=== PATIENT | male | born 1955 | race Hispanic/Latino ===

== ENCOUNTER 2018-01-05 19:54 | Emergency (ER) | payer SELFPAY ==
[2018-01-05 21:21] LABS: Basophils # (Auto) 0.1 K/mm3 (0.0-0.1); Basophils % (Auto) 1.2 % (0.0-1.8); Eosinophils # (Auto) 0.3 K/mm3 (0.0-0.4); Eosinophils % (Auto) 4.6 % (0.0-4.3); Hemoglobin 13.1 gm/dl (11.8-15.2); Lymphocytes # (Auto) 1.4 K/mm3 (1.2-5.4); Lymphocytes % (Auto) 24.7 % (13.4-35.0); Mean Corpuscular HGB Conc 35 % (32-34); Mean Corpuscular Hemoglobin 35 pg (28-32); Mean Corpuscular Volume 100 fl (84-94); Monocytes # (Auto) 0.6 K/mm3 (0.0-0.8); Monocytes % (Auto) 10.7 % (0.0-7.3); Platelet Count 228 K/mm3 (140-440)
--- NOTE | 2018-01-05 21:32 | Cat Scan Report ---
FINAL REPORT PROCEDURE: CT HEAD/BRAIN WO CON TECHNIQUE: Computerized tomography of the head was performed without contrast material. HISTORY: fall cut on top of head COMPARISON: No prior studies are available for comparison. FINDINGS: Skull and scalp: Normal. Paranasal sinuses: Normal. Ventricles and subarachnoid spaces: Are prominent consistent with cerebral atrophy appropriate for patient's age.. Cerebrum: There is mild degree bilateral periventricular nonspecific white matter hypodensity most likely representing chronic microangiopathy. An acute intra-axial or extra-axial hemorrhage is not identified. There is no mass effect.. Cerebellum and brainstem: No evidence of hemorrhage, acute infarction or mass. Vasculature: Normal. Comments: None. IMPRESSION: No acute intracranial abnormality
[2018-01-05 21:35] LABS: BUN/Creatinine Ratio 13; Blood Urea Nitrogen 16 mg/dL (9-20); Calcium 8.6 mg/dL (8.4-10.2); Hemolysis Index 7
[2018-01-05] MEDS ORDERED: NACL 0.9% 1000 ML 1,000 ML IV ONE (21:38)
--- NOTE | 2018-01-05 21:41 | Emergency Department Report ---
ED Alcohol HPI - General Chief Complaint: Fall Stated Complaint: LAC TO FOREHEAD; +ETOH Time Seen by Provider: 01/05/18 21:22 Source: patient Mode of arrival: Ambulatory Limitations: No Limitations - History of Present Illness Initial Comments: Patient is 62 years old male, unknown to me, patient brought by police department after he was found on the street intoxicated with alcohol. Patient fell and hit his head. Patient is unable to give history. He is very aggressive in the ER. Unable to obtain more history from him at this moment. MD Complaint: alcohol intoxication Last Drink: unknown - Related Data Allergies Allergy/AdvReac Type Severity Reaction Status Date / Time No Known Allergies Allergy Unverified 01/05/18 20:52 ED Review of Systems ROS: Stated complaint: LAC TO FOREHEAD; +ETOH Other details as noted in HPI Comment: Unobtainable due to pts medical conditions ED Past Medical Hx - Past Medical History Previous Medical History?: Yes Hx Hypertension: Yes Hx GERD: Yes Additional medical history: etoh abuse, - Surgical History Past Surgical History?: Yes Additional Surgical History: adenoids - Social History Smoking Status: Current Every Day Smoker Substance Use Type: Marijuana ED Physical Exam - General Limitations: No Limitations General appearance: alert, appears intoxicated - Eye Eye exam: Present: normal appearance - ENT ENT exam: Present: normal exam, normal orophraynx, mucous membranes moist - Neck Neck exam: Present: normal inspection, full ROM. Absent: tenderness, meningismus, lymphadenopathy, thyromegaly - Respiratory Respiratory exam: Present: normal lung sounds bilaterally. Absent: respiratory distress, wheezes, rales, rhonchi, stridor, chest wall tenderness, accessory muscle use, decreased breath sounds, prolonged expiratory - Cardiovascular Cardiovascular Exam: Present: regular rate, normal rhythm, normal heart sounds - GI/Abdominal GI/Abdominal exam: Present: soft, normal bowel sounds. Absent: distended, tenderness, guarding, rebound, rigid, diminished bowel sounds, organomegaly, mass, bruit, pulsatile mass, hernia - Extremities Exam Extremities exam: Present: normal inspection, full ROM, normal capillary refill - Back Exam Back exam: Present: normal inspection, full ROM. Absent: tenderness, CVA tenderness (R), CVA tenderness (L), muscle spasm, paraspinal tenderness, vertebral tenderness, rash noted - Neurological Exam Neurological exam: Present: alert, altered - Skin Skin exam: Present: warm, dry, normal color ED Course Vital Signs 01/05/18 01/05/18 01/06/18 20:47 23:38 04:50 Temperature 98.1 F Pulse Rate 77 74 Respiratory 17 19 18 Rate Blood Pressure 108/70 Blood Pressure 112/68 [Right] O2 Sat by Pulse 96 98 Oximetry ED Medical Decision Making - Lab Data Result diagrams: 01/05/18 21:03 01/05/18 21:03 Critical care attestation.: If time is entered above; I have spent that time in minutes in the direct care of this critically ill patient, excluding procedure time. ED Disposition Clinical Impression: Alcohol intoxication Disposition: [id number]/TX-65 PSY HOSP/PSY UNIT Is pt being admited?: No Condition: Stable Referrals: PRIMARY CARE [Primary Care Provider] - 3-5 Days
[2018-01-05 22:21] LABS: Alanine Aminotransferase 12 units/L (7-56)
[2018-01-05 22:25] LABS: Bilirubin,Direct < 0.2 mg/dL (0-0.2)
[2018-01-06] MEDS ORDERED: TYLENOL ONE (04:22)
[2018-01-06] MEDS ORDERED: TYLENOL PO ONE (05:05)
[2018-01-06 06:29] LABS: Bilirubin,Urine NEG (Negative); Blood,Urine NEG (Negative); Color,Urine Yellow (Yellow); Mucus,Urine FEW /HPF; Urobilinogen,Urine < 2.0 mg/dL (<2.0); WBC,Urine < 1.0 /HPF (0.0-6.0)
[2018-01-06 06:37] LABS: Amphetamine Screen,Urine PRESUMPTIVE NEGATIVE; Benzodiazepines Screen,Urine PRESUMPTIVE NEGATIVE; Cocaine Screen,Urine PRESUMPTIVE NEGATIVE; Methadone Screen,Urine PRESUMPTIVE NEGATIVE; Opiate Screen,Urine PRESUMPTIVE NEGATIVE
[2018-01-06 06:53] LABS: Cannabinoid Screen,Urine PRESUMPTIVE POSITIVE
[2018-01-06 10:53] VITALS: BP 125/77
[2018-01-06] MEDS ORDERED: K-DUR PO ONE (13:10)
--- NOTE | 2018-01-06 13:15 | Emergency Department Report ---
Blank Doc - Documentation Documentation: She is 59-year-old male that was brought to the emergency room via EMS for acute intoxication and agitation. Patient I'll call is returned to normal and is negative. Patient denies any pain or problems except for minor headache. Patient states he is ready for rehabilitation. Patient states he was clean for 26 days and relapsed last night. Patient states he wants to get back into AA. Patient was found to have low potassium. Patient has not been given any potassium replacement. We will give patient oral potassium and 40 mEq and advised patient to follow up with primary care for further checks of his potassium. Patient has been tolerating by mouth intake without problem. We'll give patient a meal prior to being discharged. Patient denies chest pain shortness of breath. Outpatient information given to him by [facility]. We will remove 2013. Exam within normal limits except for small abrasion on left side of forehead. Lungs are clear to auscultation heart exam normal. Patient A and O 4 Vital signs reviewed.
[2018-01-06] MEDS ORDERED: MOTRIN PO ONE (13:23)
--- NOTE | 2018-01-06 14:57 | Consultation ---
History of Present Illness - Reason for Consult Consult date: 01/06/18 Reason for consult: Mental Health Evaluation Requesting physician: ZAINAB CLARKE - Chief Complaint Chief complaint: "I was drunk" - History of Present Psychiatric Illness 62 years old male white male found on the street intoxicated (ETOH). Today the patient is calm and cooperative during the assessment. He stated that he was "drunk" yesterday and got into an argument with a staff member at his hotel. He stated that he was "out of line" reference his behavior. He stated a long hx of alcohol abuse. He denies having a mood do or a psychotic do. He stated that he relapsed (ETOH) recently for no reason. He stated that he plan to attend AA and other rehab services when discharged. He denies SI/HI's and AVH's. He acknowledged smoking marijuana prior to coming to the hospital. Medications and Allergies Allergies Allergy/AdvReac Type Severity Reaction Status Date / Time No Known Allergies Allergy Unverified 01/05/18 20:52 Past psychiatric history - Past Medical History Past Medical History: GERD, hypertension Past Surgical History: No surgical history - past Psychiatric treatment and history psychiatric treatment history: Hx of Alcohol Abuse. Denies a fam psy hx. - Social History Social history: Lives alone Mental Status Exam - Vital signs Last Vital Signs Temp 97.8 F 01/06/18 10:00 Pulse 73 01/06/18 10:00 Resp 18 01/06/18 10:00 BP 125/77 01/06/18 10:00 Pulse Ox 97 01/06/18 10:00 - Exam Narrative exam: MSE: Appearance: calm, cooperative Behavior: regular eye contact Speech: regular rate and tone Mood: "okay" Affect: congruent to mood Thought Process: logical Thought Content: denies SI/HI's and AVH's Motor Activity: lying in bed Cognition: A/O x 3 Insight: appropriate Judgment: appropriate Results Result Diagrams: 01/05/18 21:03 01/05/18 21:03 Abnormal lab results 01/05/18 01/05/18 01/05/18 Range/Units 21:03 21:03 21:03 MCV (84-94) fl MCH (28-32) pg MCHC (32-34) % [place] % (Auto) (0.0-7.3) % Eos % (Auto) (0.0-4.3) % Potassium 3.0 L (3.6-5.0) mmol/L Chloride 92.5 L (98-107) mmol/L Carbon Dioxide 34 H (22-30) mmol/L Urine pH (5.0-7.0) Salicylates < 0.3 L (2.8-20.0) mg/dL Acetaminophen < 5.0 L (10.0-30.0) ug/mL Plasma/Serum Alcohol (0-0.07) % 01/05/18 01/05/18 01/06/18 Range/Units 21:03 21:03 Unknown MCV 100 H (84-94) fl MCH 35 H (28-32) pg MCHC 35 H (32-34) % [place] % (Auto) 10.7 H (0.0-7.3) % Eos % (Auto) 4.6 H (0.0-4.3) % Potassium (3.6-5.0) mmol/L Chloride (98-107) mmol/L Carbon Dioxide (22-30) mmol/L Urine pH 9.0 H (5.0-7.0) Salicylates (2.8-20.0) mg/dL Acetaminophen (10.0-30.0) ug/mL Plasma/Serum Alcohol 0.21 H (0-0.07) % All other labs normal. Assessment and Plan Assessment and plan: Impression: Alcohol Use DO. Cannabis Use DO. Today the patient is calm and cooperative during the assessment. DDx: R/O Mood DO Recommendation/Plan: Rescind 2012. The patient can follow up with [facility], or [facility] for outpatient rehabs services. Discussed the importance to abstain from alcohol consumption (etoh).
== END 2018-01-06 15:37 | disposition home or self-care (01) ==
LOC: ED 19:54
DX: F10.129 Alcohol abuse with intoxication, unspecified (principal); I10 Essential (primary) hypertension; K21.9 Gastro-esophageal reflux disease without esophagitis; F17.200 Nicotine dependence, unspecified, uncomplicated; F12.10 Cannabis abuse, uncomplicated; Z79.899 Other long term (current) drug therapy
CPT/HCPCS: 36415; 70450; 80048; 80074; 80307; 81001; 85025; 99285; G0480; J7030; 80320; 99284